=== PATIENT | male | born 1980 | race Caucasian/White ===

== ENCOUNTER 2018-11-29 11:47 | Observation (INO) ==
[2018-11-29] MEDS ORDERED: ASPIRIN PO ONE (11:57)
[2018-11-29] MEDS ORDERED: DILAUDID IV ONE (12:05)
[2018-11-29] MEDS ORDERED: ZOFRAN IV ONE (12:05)
[2018-11-29 12:25] LABS: INR 0.94; PROTIME 13.1 Seconds (11.0-16.0)
[2018-11-29 12:31] LABS: AGAP 11; ALBUMIN 4.2 g/dL (3.5-5.0); ALKALINE PHOSPHATASE 93 U/L (32-122); BUN 12 mg/dL (8-22); CALCIUM 9.5 mg/dL (8.8-10.2); CHLORIDE 104 mmol/L (98-107); CK PROFILE 113 U/L (24-204); COSMO 280; CREATININE 0.9 mg/dL (0.7-1.2); ESTIMATED GFR > 60; GLUCOSE 105 mg/dL (70-104); GOT 22 U/L (10-34); GPT 33 U/L (10-44); POTASSIUM 4.1 mmol/L (3.5-5.1); SODIUM 140 mmol/L (136-145); TCO2 25 mmol/L (25-35); TOTAL PROTEIN 6.8 g/dL (6.3-8.3)
--- NOTE | 2018-11-29 12:46 | Diag Imaging Result Doc PS360 ---
EXAM: CHEST-1 VIEW HISTORY: chest pain TECHNIQUE: Chest single view COMPARISON: 08/24/2018 FINDINGS: Poor inspiratory effort. The heart is not enlarged. The vessels are not distended. There are no infiltrates. Questionable small left pleural effusion. IMPRESSION: Questionable small left effusion, otherwise negative exam. Electronically signed by Humble Kimball 11/29/2018 12:43 PM
[2018-11-29 13:37] LABS: BASO# 0.04 X1000 (0.0-0.2); BASO% 0.6 % (0.0-0.8); EOS% 2.8 % (0.0-10.0); HEMATOCRIT 42.9 % (42.0-52.0); HEMOGLOBIN 14.1 g/dL (14.0-18.0); IMM GRAN# 0.03 X1000 (0.0-0.04); IMM GRAN% 0.4 % (0.0-0.5); LYMPH# 2.42 X1000 (1.2-3.4); LYMPH% 34.2 % (20.5-51.1); MCH 28.5 PG (27-31); MCHC 32.9 g/dL (33-37); MCV 86.7 FL (81-99); MONO# 0.66 X1000 (0.11-0.59); MONO% 9.3 % (1.7-9.3); MPV 11.8 FL (7.4-10.4); NEUT# 3.73 X1000 (1.4-6.5); NEUT% 52.7 % (42.2-75.2); PLT 235 X1000 (130-400); RBC 4.95 XMIL (4.7-6.1); RDW 13.1 % (11.5-14.5); WBC 7.08 X1000 (4.8-10.8)
[2018-11-29 13:43] LABS: BILIRUBIN URINE NEGATIVE (NEGATIVE); BLOOD URINE NEGATIVE (NEGATIVE); GLUCOSE URINE NEGATIVE (NEGATIVE); KETONE URINE NEGATIVE (NEGATIVE); LEUKOCYTES URINE NEGATIVE (NEGATIVE); NITRITE URINE NEGATIVE (NEGATIVE); PH URINE 6.5; PROTEIN URINE TRACE mg/dL (NEGATIVE); UROBILINOGEN URINE NORMAL
[2018-11-29 13:44] LABS: CLARITY CLEAR (CLEAR); COLOR YELLOW; URINE BACTERIA NEGATIVE /HFP; URINE CAST NONE SEEN /LPF; URINE CRYSTAL NONE SEEN /HPF; URINE EPITHELIAL CELLS <10 /HPF (<10); URINE RBC <10 /HPF (<10); URINE SOURCE CLEAN CATCH; URINE WBC <10 /HPF (<10); URINE YEAST NONE SEEN /HPF
--- NOTE | 2018-11-29 14:17 | PROVIDER DOCUMENTATION ---
This chart was entered by Makayla Renee Scribe, acting as scribe for Brooks Lopez MD. HPI-Chest Pain - General Chief Complaint: Chest Pain Stated Complaint: CHEST PAIN Time Seen by Provider: 11/29/18 11:57 Source: patient, EMS Allergies/Adverse Reactions: Patient Allergies Allergy/AdvReac Type Severity Reaction Status Date / Time Penicillins Allergy Mild RASH Verified 06/29/18 13:47 Home Medications: Home Medication List Medication Instructions Recorded Confirmed Last Taken Type Azithromycin [Zithromax Z-Herbie] 250 mg PO DIRECTED #1 pkg 06/29/18 Unknown Rx Cetirizine [Zyrtec] 10 mg PO DAILY #20 tab 06/29/18 Unknown Rx D-Methorphan/P-Epd/Bpm [Bromfed Dm 5 ml PO Q4H PRN #120 ml 06/29/18 Unknown Rx Liquid] Prednisone 20 mg PO DIRECTED #18 tab 06/29/18 Unknown Rx Azithromycin 250 mg PO DAILY #11 tab 08/24/18 Unknown Rx Etodolac [Lodine] 400 mg PO BID CC #20 tab 08/24/18 Unknown Rx Prednisone 20 mg PO BID #10 tab 08/24/18 Unknown Rx - History of Present Illness-CP Nature of Presenting Problem: 38 yowm presents to the ed via ems with c/o chest pain, diaphoresis, sob nausea dizziness and left arm pain. pt sts was at work with acute onset of sx and sts f eels similar to when had a [place] 8 months prior. pt sts ems gave Nitro and ASA and pain has improved to 6/10 Location: reports: other (left anterior) Chest Pain Radiation: reports: arms Quality of Pain: reports: aching, pressure Severity in ED: severe (04/06) Onset/Duration: just prior to arrival Timing: still present, improving Context/Activities at Onset: reports: moderate activity Modifying Factors: improves with: nothing Associated Symptoms: reports: diaphoresis, dizziness, nausea, shortness of breath. denies: abdominal pain, back pain, syncope, vomiting, weakness Nitro Today/Relief: 0.4 mg x 1, provided by EMS, mild relief Aspirin Treatment Today: 325 mg x 1, provided by EMS Prior Chest Pain/Cardiac Workup: reports: heart attack Similar Symptoms Previously?: Yes ([place] 8 months prior) Recently Seen Here or By Another Healthcare Provider: No Review of Systems - Adult - REVIEW OF SYSTEMS - ADULT Constitutional: reports: no symptoms reported Eyes: denies: blurred vision, double vision Ears, Nose, Mouth & Throat: reports: no symptoms reported Cardiovascular: reports: see HPI, chest pain. denies: palpitations, syncope Respiratory: reports: see HPI, shortness of breath. denies: cough, wheezing Gastrointestinal: reports: nausea. denies: abdominal pain, diarrhea, vomiting Genitourinary: reports: no symptoms reported Musculoskeletal: reports: see HPI, other (left arm pain). denies: back pain Integumentary: reports: no symptoms reported Neurological: reports: see HPI, dizziness/vertigo. denies: slurred speech, syncope, tremors Psychiatric: reports: no symptoms reported Endocrine: reports: no symptoms reported Hematologic/Lymphatic: reports: no symptoms reported Allergic/Immunologic: reports: no symptoms reported All Other Systems: Reviewed and Negative Past History - Adult - PAST MEDICAL HISTORY-ADULT Review of Records: reports: Nursing Assessment Review, Medications Reviewed Major Childhood Illnesses: reports: denies history Cardiovascular: reports: HTN, [place], other (paracarditis) Respiratory: reports: asthma Gastrointestinal: reports: denies history Genitourinary: reports: denies history Musculoskeletal: reports: denies history Hand Dominance: Right Handed Neurological: reports: denies history Psychiatric: reports: denies history Endocrine/Immune: reports: denies history Other Conditions: reports: denies history - PRIOR SURGERIES/PROCEDURES Surgical/Procedure History: reports: reviewed, not pertinent - IMMUNIZATION STATUS Childhood Immunizations: See Nurse Assessment Flu Vaccine: See Nurse Assessment - FAMILY HISTORY Family History: reviewed, not pertinent - SOCIAL HISTORY Smoking: denies Substance Use: denies Living Situation: family Physical Exam-General - PHYSICAL EXAM-ADULT Initial Vital Signs Reviewed: Yes - CONSTITUTIONAL General Appearance: alert, mild distress, obese - EYES Eyes: PERRL/EOMI, pink conjunctivae - HEAD, EARS, NOSE, MOUTH & THROAT HENMT: moist mucous membranes, normal ENT inspection - NECK Neck: non-tender, full range of motion, supple, normal inspection - RESPIRATORY Respiratory: chest non-tender, lungs clear, normal breath sounds - CARDIOVASCULAR Cardiovascular: normal peripheral pulses, regular rate, rhythm - CHEST (BREASTS) Chest/Breast: deferred - GASTROINTESTINAL (ABDOMEN) Abdominal Exam: normal bowel sounds, non tender, soft - GENITOURINARY Male Genitalia: deferred Rectal Exam: deferred Hemoccult Exam: deferred - LYMPHATIC Lymphatic: no adenopathy - MUSCULOSKELETAL Back Exam: normal inspection, no CVA tenderness, no vertebral tenderness Extremity: normal range of motion, non-tender, normal gait, normal inspection, no pedal edema, pelvis stable - SKIN Integumentary: normal color, diaphoresis - NEUROLOGIC Neurologic: grossly normal, no motor/sensory deficits - PSYCHIATRIC Psych/Mental Status: normal thought content, normal thought process, oriented x 3, anxious - HEART Score HEART Score: History: Moderately Suspicious HEART Score: ECG: Normal HEART Score: Age: < or = 45 Years HEART Score: Risk Factors for Atherosclerotic Disease: > or = 3 Risk Factors or History of Atherosclerotic Disease HEART Score: Troponin: < or = Normal Limit Total HEART Score:: 3 Progress - PLAN OF CARE/RESULTS Progress/Plan/Lab Results: Vital Signs - 8 hr 11/29/18 11:47 Pulse Rate 76 Respiratory Rate 18 Blood Pressure 119/85 O2 Sat by Pulse Oximetry 100 Laboratory Results - last 24 hr 11/29/18 11/29/18 11/29/18 11:54 11:54 11:54 WBC RBC Hgb Hct MCV MCH MCHC RDW Std Deviation Plt Count MPV Immature Gran % (Auto) Neut % (Auto) Lymph % (Auto) [place] % (Auto) Eos % (Auto) Baso % (Auto) Immature Gran # (Auto) Neut # (Auto) Lymph # (Auto) [place] # (Auto) Eos # (Auto) Baso # (Auto) PT INR PTT (Actin FS) Sodium 140 Potassium 4.1 Chloride 104 Carbon Dioxide 25 Anion Gap 11 BUN 12 Creatinine 0.9 Estimated GFR/1.73 m2 > 60 BUN/Creatinine Ratio 13 Glucose 105 H Calculated Osmolality 280 Calcium 9.5 Total Bilirubin 0.20 AST 22 ALT 33 Alkaline Phosphatase 93 Creatine Kinase 113 Troponin T < 0.010 Kaa-B-Ubxmwohjmsd Pept 21 Total Protein 6.8 Albumin 4.2 Globulin 3.0 Albumin/Globulin Ratio 2.0 Urine Source Urine Color Urine Clarity Urine pH Ur Specific [place] Urine Protein Urine Ketones Urine Blood Urine Nitrite Urine Bilirubin Urine Urobilinogen Urine Microscopic RBC Urine WBC Urine Microscopic WBC Ur Epithelial Cells Urine Crystals Urine Bacteria Urine Casts Urine Yeast Urine Glucose 11/29/18 11/29/18 11/29/18 11:54 11:54 13:18 WBC 7.08 RBC 4.95 Hgb 14.1 Hct 42.9 MCV 86.7 MCH 28.5 MCHC 32.9 L RDW Std Deviation 13.1 Plt Count 235 MPV 11.8 H Immature Gran % (Auto) 0.4 Neut % (Auto) 52.7 Lymph % (Auto) 34.2 [place] % (Auto) 9.3 Eos % (Auto) 2.8 Baso % (Auto) 0.6 Immature Gran # (Auto) 0.03 Neut # (Auto) 3.73 Lymph # (Auto) 2.42 [place] # (Auto) 0.66 H Eos # (Auto) 0.20 Baso # (Auto) 0.04 PT 13.1 INR 0.94 PTT (Actin FS) 26.0 Sodium Potassium Chloride Carbon Dioxide Anion Gap BUN Creatinine Estimated GFR/1.73 m2 BUN/Creatinine Ratio Glucose Calculated Osmolality Calcium Total Bilirubin AST ALT Alkaline Phosphatase Creatine Kinase Troponin T Ljb-N-Erbtjvkgbqu Pept Total Protein Albumin Globulin Albumin/Globulin Ratio Urine Source CLEAN CATCH Urine Color YELLOW Urine Clarity CLEAR Urine pH 6.5 Ur Specific [place] 1.020 Urine Protein TRACE A Urine Ketones NEGATIVE Urine Blood NEGATIVE Urine Nitrite NEGATIVE Urine Bilirubin NEGATIVE Urine Urobilinogen NORMAL Urine Microscopic RBC <10 Urine WBC NEGATIVE Urine Microscopic WBC <10 Ur Epithelial Cells <10 Urine Crystals NONE SEEN Urine Bacteria NEGATIVE Urine Casts NONE SEEN Urine Yeast NONE SEEN Urine Glucose NEGATIVE Orders Category Date Time Status Cardiac Monitoring DIRECTED Care 11/29/18 11:57 Active Nursing- Obtain EKG ONCE Care 11/29/18 11:58 Active Oxygen Therapy- ED Nursing DIRECTED Care 11/29/18 11:57 Active Saline Loc NOW Care 11/29/18 11:57 Active cxr [CHEST-1 VIEW] [RAD] Stat Exams 11/29/18 11:58 Completed CBC WITH ELECTRONIC DIFF [HEME] Stat Lab 11/29/18 11:54 Completed CK PROFILE [SP CHEM] Stat Lab 11/29/18 11:54 Completed COMPREHENSIVE METABOLIC PANEL [CHEM] Stat Lab 11/29/18 11:54 Completed PRO B-NATRIURETIC PEPTIDE Stat Lab 11/29/18 11:54 Completed PROTIME WITH INR [COAG] Stat Lab 11/29/18 11:54 Completed PTT [COAG] Stat Lab 11/29/18 11:54 Completed TROPONIN T Stat Lab 11/29/18 11:[address] W/POSS RFLX CULT [URINALYSIS] Stat Lab 11/29/18 13:18 Completed Aspirin Med 11/29/18 11:57 Discontinued 325 mg PO NOW ONE Hydromorphone [Dilaudid] Med 11/29/18 12:05 Discontinued 1 mg IV NOW ONE Ondansetron [Zofran] Med 11/29/18 12:05 Discontinued 4 mg IV NOW ONE CP/SOB/Palp >45 yrs of Age Stat Oth 11/29/18 11:57 Ordered EKG [EKG] Stat Ther 11/29/18 11:57 Ordered Result Diagrams: 11/29/18 11:54 11/29/18 11:54 - REASSESSMENT Reassessment #1 Time Reassessed: 13:15 Status: improving - EKG 1 Time of EKG reading by physician:: 11:50 EKG Read and Signed by:: Brooks Lopez EKG Interpretation (*Must complete 3 of following elements*): Normal Rate: 72 Rhythm: nsr [place]: normal QRS: normal OK Interval: normal ST Wave: normal - XRAY 1 XRAY: Bilateral XRAY Study: Chest Impression: See EMR Report (EXAM: CHEST-1 VIEW HISTORY: chest pain TECHNIQUE: Chest single view COMPARISON: 08/24/2018 FINDINGS: Poor inspiratory effort. The heart is not enlarged. The vessels are not distended. There are no infiltrates. Questionable small left pleural effusion. IMPRESSION: Questionable small left effusion, otherwise negative exam. Electronically signed by Humble Kimball 11/29/2018 12:43 PM 11/29/18 1243 Interpreting Physician: Humble Kimball MD Dictated Date/Time: 11/29/18 1243 cc: Brooks Lopez MD; None,PCP) - CONSULTS/PCP/HOSPITALIST Notification #1 *Consult/PCP/Hospitalist*: Dr Posey Time Discussed: 14:17 Consult Disposition: Admit Departure - Departure Date of Disposition Decision: 11/29/18 Time of Disposition Decision: 13:21 DIAGNOSIS: Chest pain Disposition: ADMITTED INPATIENT 09 Certified Medical Emergency: Emergent Condition: Fair Referrals and Follow-Ups: None,PCP [Primary Care Provider] - - Critical Care Note This patient required my direct & personal management of CC.: No Attestation - Physician/ ARUNA Attestation Patient care was provided by Advanced Practice Provider:: No The physician spent face to face time with patient:: Yes Advanced Practice Provider documentation review:: Supervising physician onsite and consulted in the evaluation and care of this patient. The physician did have a face to face encounter with the patient. This chart was documented by the indicated scribe, (Makayla Renee Scribe) and accurately reflects the services I performed and decisions made by me, Brooks Ribeiro MD, as attested by the provider's signature.
[2018-11-29] MEDS ORDERED: ZOFRAN ODT PO PRN (15:27)
[2018-11-29] MEDS ORDERED: DILAUDID IV PRN (15:27)
--- NOTE | 2018-11-29 15:57 | EKG Report ---
Test Performed on : 11/29/2018 11:50:31 AM Test Reason : chest pain #1 Blood Pressure : / mmHG Vent. Rate : 072 BPM Atrial Rate : 072 BPM P-R Int : 154 ms QRS Dur : 084 ms QT Int : 350 ms P-R-T Axes : 034 054 020 degrees QTc Int : 383 ms Normal sinus rhythm. Normal ECG When compared with ECG of 24-AUG-2018 06:16, No significant change was found Unconfirmed Result
[2018-11-29] MEDS ORDERED: ZOFRAN IV PRN (16:01)
[2018-11-29] MEDS ORDERED: PNEUMOVAX 23 IM ONE (16:51)
[2018-11-29] MEDS ORDERED: LOVENOX SUBQ SCH (17:00)
--- NOTE | 2018-11-29 17:06 | HISTORY AND PHYSICAL ---
CHIEF COMPLAINT: Chest pain. HISTORY OF PRESENT ILLNESS: This is a 38-year-old male with an unremarkable past medical history who was brought to the emergency department because of chest pain. Apparently, this morning around 11 a.m. he was working outside when he noticed some chest discomfort, like chest tightness, diaphoresis, shortness of breath, nausea, and dizziness and that chest tightness traveled to the left arm. He reports that he had similar symptoms when he had an episode of possible acute coronary syndrome approximately 8 months ago, so he decided to come to the emergency department. He was provided nitroglycerin and aspirin and the pain improved to 6 to 7/10. He denies any other complaints. He reports that he had a similar episode so he went to urgent care and from there he was sent to [facility] where he was seen by a superintendent drilling. He got a stress test with an echocardiogram and apparently everything was okay. He was told that he had symptoms of acute coronary syndrome but apparently acute coronary syndrome was ruled out. PAST MEDICAL HISTORY: 1. Bronchial asthma. 2. Obstructive sleep apnea, on CPAP. 3. Hospitalized in [facility] for a week and all workup returned negative. PAST SURGICAL HISTORY: 1. Right wrist fracture. 2. Left knee meniscal repair. SOCIAL HISTORY: He works as an journeyman electrician pv installer. Denies smoking, drinking alcohol, or using illicit drugs. FAMILY HISTORY: Positive for diabetes and stroke in grandparents. ALLERGIES: Patient is allergic to penicillin. REVIEW OF SYSTEMS: Eleven systems were reviewed and all symptoms are related to HPI. PHYSICAL EXAMINATION: VITAL SIGNS: Temperature 97.7 degrees, heart rate 67, respiratory rate 20, blood pressure 159/100, O2 saturation 100% on room air. GENERAL EXAMINATION: This is a 38-year-old male, lying in bed, in no acute distress. HEENT: Head is normocephalic, atraumatic. Pupils equal, round, and reactive to light and accommodation. Neck: No JVD noted. No carotid bruits. No lymphadenopathy. No thyromegaly. Cardiovascular: S1, S2. No murmurs, gallops, or rubs. Regular rate and rhythm. Respiratory: Clear bilaterally to auscultation. No work of breathing or using accessory muscles. Abdomen: Soft. Nontender to palpation. Bowel sounds present. No organomegaly. Extremities: No clubbing, cyanosis, or edema. Peripheral pulses present in both legs. Neurological: Patient is alert and oriented x3. Moves 4 extremities. LABORATORY DATA: CBC and BMP were reviewed and okay, along with urinalysis. First set of troponins are completely negative. ASSESSMENT AND PLAN: Chest pain. Because of suspicion for coronary artery disease, he is going to be admitted to the hospital. We are going to check a lipid panel, hemoglobin A1c. We are going to do an echocardiogram. We are going to do a stress test, Lexiscan and we will go from there. We will monitor this patient closely. If any of those exams are positive, then we will consult Cardiology. In the meantime, we will continue to monitor this patient closely with telemetry here in the hospital. cc: Kermit Manning MD
[2018-11-30 04:17] LABS: HEMATOCRIT 42.5 % (42.0-52.0); HEMOGLOBIN 14.1 g/dL (14.0-18.0); MCH 29.3 PG (27-31); MCHC 33.2 g/dL (33-37); MCV 88.2 FL (81-99); RBC 4.82 XMIL (4.7-6.1); RDW 13.3 % (11.5-14.5); WBC 7.37 X1000 (4.8-10.8)
[2018-11-30 04:34] LABS: AGAP 8; BUN 12 mg/dL (8-22); CALCIUM 8.9 mg/dL (8.8-10.2); CHLORIDE 103 mmol/L (98-107); COSMO 277; ESTIMATED GFR > 60; GLUCOSE 97 mg/dL (70-104); MAGNESIUM 2.1 mg/dL (1.5-2.7); POTASSIUM 4.5 mmol/L (3.5-5.1); SODIUM 139 mmol/L (136-145); TCO2 28 mmol/L (25-35)
[2018-11-30] MEDS ORDERED: PRILOSEC PO SCH (07:00)
[2018-11-30] MEDS ORDERED: ASPIRIN PO SCH (09:00)
[2018-11-30] MEDS: DUONEB (A & A) INH PRN ×2 (12:26→15:30)
--- NOTE | 2018-11-30 13:56 | Diag Imaging Result Document ---
PROCEDURE NAME: MYOCARDIAL PERF SCAN, STR/REST - 11/29/2018 INDICATION: Chest pain, history of myocardial infarction. PROCEDURES PERFORMED: 1. Darrin protocol stress. 2. One-day stress rest myocardial perfusion imaging. PROCEDURE IN DETAIL: Mr. Stevenson was brought to the nuclear laboratory and had a resting study with injection of 14.4 mCi of technetium-99m sestamibi with the usual imaging protocol utilized. He subsequently was brought back and had a Darrin protocol stress. At peak stress, he was injected with 46.6 mCi of technetium-99m sestamibi with the usual imaging protocol utilized. FINDINGS: Darrin protocol stress results: 1. Baseline EKG showed sinus rhythm. 2. Patient exercised for a total of 9-1/2 minutes, achieving a peak heart rate of 153 which is 85% of age predicted max. He achieved very early stage IV of the Darrin protocol. Exercise capacity was reduced at only 88% of age and sex predicted exercise capacity. 3. Appropriate blood pressure response to exercise. 4. Test was terminated due to fatigue. 5. The patient did have left-sided chest tightness that was 5/10 that resolved with rest. 6. No ischemic-related EKG changes or significant arrhythmias. Perfusion imaging results: 1. No evidence of abnormal extracardiac uptake. 2. TID ratio is 0.86. 3. Perfusion imaging demonstrates what appears to be normal homogeneous uptake of radiotracer throughout the myocardial segments. I do not see any clear evidence of stress-related defects. 4. There is a normal ejection fraction of 82%. The end-diastolic volume is 103, end-systolic volume is 18. Normal wall motion. cc: MD Kermit Abarca MD
[2018-11-30 15:51] VITALS: BP 135/79
--- NOTE | 2018-12-02 06:43 | DISCHARGE SUMMARY ---
ADMISSION DATE: 11/29/2018 DISCHARGE DATE: 11/30/2018 PRIMARY CARE PHYSICIAN: Listed as none. ADMISSION DIAGNOSIS: Chest pain, suspicion for coronary artery disease. DISCHARGE DIAGNOSIS: Chest pain, resolved, ruled out for myocardial infarction by myocardial perfusion scan. SUMMARY OF FINDINGS: This is a 38-year-old male who presented to the emergency room with chest pain that began around 11:00 a.m. when he was working outside. Described it as chest discomfort with chest tightness, diaphoresis, and shortness of breath with nausea and dizziness. He states that it radiated to his left arm. He had similar episodes when he had an episode of possible acute coronary syndrome approximately 8 months ago. So he was admitted. He had cardiac enzymes x4 sets that were negative. We did a myocardial perfusion scan that was read as normal. So it was felt that he could safely be discharged home. DISCHARGE MEDICATIONS: Discharge medications include aspirin 325 mg p.o. daily, a Z-Herbie as directed, cetirizine 10 mg p.o. daily, Cardizem 180 mg p.o. daily, Breo Ellipta 200/25 one puff inhalation daily, and Singulair 10 mg p.o. daily. FOLLOWUP: He will need to follow up with his primary care physician in 1 to 2 weeks and call their office for an appointment. TIME SPENT WITH PATIENT: This a 33-minute discharge. Dictated by DEBORA Vaz for Kermit Manning MD cc: DEBORA Vaz MD Dr. Reddy
== END 2018-11-30 16:48 | disposition home or self-care (01) ==
LOC: P.ED 11:47 → INTOOBSV 11:48 → P.MEDSURG 15:16
PROVIDERS: ATTEND Internal Medicine
CPT/HCPCS: 71010; 71045; 78452; 80048; 80053; 81001; 82550; 83735; 83880; 84484; 85025; 85027; 85610; 85730; 93005; 93017; 93306; 94640; 94761; A9270; A9500; J1170; J1650; J2405